=== PATIENT | male | born 1950 | race Caucasian/White ===

== ENCOUNTER 2017-05-28 15:44 | Observation (INO) | payer OTHER ==
[~2017-05-28] VITALS: Ht 185.4 cm; Wt 86.4 kg
[~2017-05-28 15:44] MED LIST: ASPIRIN LOW DOS81 M2 PO; ASPIRIN325 MG PO; ATENOLOL50 MG OR; BACTRIM DS1 TAB PO; LIPITOR20 M1 PO; LISINOPRIL10 MG PO; NITROGLYCER0.4 MG SL; NITROQUICK0.4 MG SL; OXYCODONE30 MG PO; PLAVIX75 MG OR; PROAIR HFA IN; PROCARDIA XL60 MG OR; SINGULAIR10 MG PO; ULTRAM50 MG PO
--- NOTE | 2017-05-28 15:44 | NUR ---
PATIENT TO ROOM VIA EMS AND PHYSICIAN AT BEDSIDE FOR EVALUATION
[2017-05-28 16:23] LABS: HEMATOCRIT 40.4 % (39.0-50.0); HEMOGLOBIN 13.1 g/dl (14.0-18.0); IMMATURE GRANULOCYTES 0.4 % (0.0-1.0); MEAN CELL VOLUME 91.4 fL CALC (80.0-100.0); MEAN CORPUSCULAR HGB 29.6 pG CALC (26.0-32.0); MEAN CORPUSCULAR HGB CONC 32.4 g/L CALC (32.0-36.0); NEUT# 2.97 thou/uL (1.82-7.42); RED BLOOD COUNT 4.42 mill/uL (4.70-6.10); RED CELL DISTRI WIDTH 13.5 % (11.5-15.5)
[2017-05-28 16:34] LABS: ALBUMIN 3.8 g/dL (3.2-5.0); ALKALINE PHOSPHATASE 102 u/l (38-126); ANION GAP 15 (6-22 (CALC)); BILIRUBIN, TOTAL 0.4 mg/dL (0.0-1.4); BUN 15 mg/dL (8-23); BUN/CREATININE RATIO 19 (12-20 (CALC)); CARBON DIOXIDE 25 mmol/l (22-30); CHLORIDE 110 mmol/l (95-108); CREATININE 0.8 mg/dL (0.7-1.3); GFR > 60 ML/MIN (>=60 (CALC)); GFR FOR AFR.AMER. > 60 ML/MIN (>=60 (CALC)); LIPASE 74 u/l (23-300); POTASSIUM 4.5 mmol/l (3.5-5.1); SGOT/AST 20 u/l (19-48); SGPT/ALT 27 u/l (11-66); SODIUM 146 mmol/l (137-146); TOTAL PROTEIN 6.3 g/dL (6.3-8.2)
--- NOTE | 2017-05-28 16:36 | NUR ---
PATIENT REPORTS CHEST PAIN 3/10 AT THIS TIME. NO SIGNS OF DISTRESS NOTED, VITAL SIGNS STABLE. WILL CONTINUE TO MONITOR.
[2017-05-28 16:39] LABS: D-DIMER 2.1 mg/L (0.19-0.60); INTERNATIONAL NORMALIZED RATIO 0.9 RATIO (0.7-1.3); PROTHROMBIN TIME 10.4 SECONDS (9.0-12.5)
--- NOTE | 2017-05-28 16:54 | NUR ---
NITRO BID APPLIED TO RIGHT UPPER CHEST. CALL LIGHT GIVEN, INFORMED TO CALL FOR ASSISTANCE. OFFICER AT BEDSIDE.
[2017-05-28] MEDS ORDERED: NITROGLYCERIN0.4 MG SL (18:00)
--- NOTE | 2017-05-28 18:01 | NUR ---
PATIENT MEDICATED PER MD ORDERS. TOLERATED WELL. REPORTS CHEST PAIN 3/10 AT THIS TIME. OFFICER AT BEDSIDE. WILL CONTINUE TO MONITOR.
--- NOTE | 2017-05-28 18:58 | NUR ---
REPORT GIVEN TO JANIYA DANIEL. CARE RELINQUISHED.
--- NOTE | 2017-05-28 19:25 | NUR ---
PT RESTING COMFORTABLY AT THIS TIME, GUARD WITH PT DUE TO INCARCERATIOIN.
--- NOTE | 2017-05-28 19:38 | NUR ---
Report called to [facility], Nadja DENSON. placing pt on tele box and transporting in a few minutes
--- NOTE | 2017-05-28 19:45 | NUR ---
PT TRANSFERRED TO FLOOR VIA STRETCHER ACCOMPANIED BY [employer] AND GUARD;PT AMBULATED WITH A STEADY GAIT TO STANDING SCALE AND BEDSIDE;WEIGHT AND VS OBTAINED;PT REPORTS HAVING CHEST PAIN,RADIATING TO HIS RIGHT ARM FOR 1 WEEK;CHEST PAIN CURRENTLY RATING 3/10 ON THE PAIN SCALE;MEDICATION SCHEDULE AND REPORTING EDUCATED;NITRO OINTMENT TO LEFT CHEST;PT ORIENTED TO ROOM AND CALL LIGHT SYSTEM;ASSESSMENT COMPLETED;PT A&O X3;TELE MONITOR IN PLACE;RESPIRATIONS EVEN AND UNLABORED ON RA,CLEAR LUNG SOUNDS NOTED;PERRLA;ABDOMEN SOFT WITH X4 ACTIVE BOWEL SOUNDS;STRONG PEDAL PULSES;EMS #20G TO LEFT HAND FLUSHED AND PATENT,SITE APPEARS HEALTHY;WATER PROVIDED PER REQUEST;SAFETY PRECAUTIONS REINFORCED WITH BED IN THE LOWEST POSITION;URINAL AT BEDSIDE;PT ENCOURAGED TO CALL FOR ASSISTANCE IF NEEDED;CALL LIGHT IN REACH;WILL CONTINUE TO MONITOR
[2017-05-28 19:52] VITALS: BP 144/90
--- NOTE | 2017-05-28 19:57 | NUR ---
Transported to [facility] via [facility]
--- NOTE | 2017-05-28 21:25 | NUR ---
NEW ORDERS RECEIVED FROM
--- NOTE | 2017-05-29 00:45 | NUR ---
PT APPEARS TO BE SLEEPING WITH GUARD AT BEDSIDE;WOKE PT TO OBTAIN VS;400CC OF YELLOW URINE EMPTIED FROM URINAL;PT DENIES ANY CHEST PAIN AT THIS TIME;TELE MONITOR IN PLACE;PT RE-ENCOURAGED TO CALL FOR ASSISTANCE IF NEEDED;CALL LIGHT IN REACH;WILL CONTINUE TO MONITOR
[2017-05-29 00:47] VITALS: BP 113/67
[2017-05-29 04:35] VITALS: BP 118/69
--- NOTE | 2017-05-29 04:35 | NUR ---
PT SLEEPING WITH EYES CLOSED IN SUPINE POSITION AND GUARD AT BEDSIDE;WOKE PT TO OBTAIN VS;PT VOICES NO COMPLAINTS OF CHEST PAIN;200CC OF CLEAR/YELLOW URINE EMPTIED FROM URINAL;TELE MONITOR IN PLACE;CALL LIGHT IN REACH;WILL CONTINUE TO MONITOR
--- NOTE | 2017-05-29 08:00 | NUR ---
PT IN SUPINE POSITION; NO COMPLAINTS VOICED; GUARD X1 AT BEDSIDE; TELE MONITOR IN PLACE; RT ANKLE SHACKLED, FULL ROM; WILL CONTINUE TO MONITOR.
[2017-05-29 08:15] VITALS: BP 137/62
[2017-05-29 10:47] VITALS: BP 128/75
--- NOTE | 2017-05-29 10:48 | NUR ---
TIMOTHY MENDEZ CALLED FROM [facility] FOR UPDATE ON PT'S STATUS
[2017-05-29] MEDS ORDERED: ZOLOFT50 MG PO (13:21)
[2017-05-29] MEDS ORDERED: MEDDOSEPAK PO (13:23)
--- NOTE | 2017-05-29 13:33 | NUR ---
DR. PORTER IN TO SEE PT; PLAN OF CARE DISCUSSED
--- NOTE | 2017-05-29 14:11 | NUR ---
Discharge instructions given. Patient verbalizes understanding of same. Discharged in stable condition via Wheelchair to [facility] with [facility] STAFF. All belongings sent with pt.
== END 2017-05-29 14:10 | DRG 313 ==
LOC: ED 15:44 → ED-I 18:42 → ED 18:57 → MS2 18:58
PROVIDERS: Emergency Medicine; ADMIT Internal Medicine; ATTEND Internal Medicine
DX: R07.89 Other chest pain (principal); I25.10 Atherosclerotic heart disease of native coronary artery without angina pectoris; J44.9 Chronic obstructive pulmonary disease, unspecified; F32.9 Major depressive disorder, single episode, unspecified; G89.29 Other chronic pain; M54.5 Low back pain; I25.2 Old myocardial infarction; Z87.891 Personal history of nicotine dependence
CPT/HCPCS: G0378; Q9967

== ENCOUNTER 2019-07-09 | Emergency (ER) | payer MEDICARE, OTHER ==
[~2019-07-09] MED LIST changes: +MEDDOSEPAK PO; +NITROGLYCERIN0.4 MG SL; +ZOLOFT50 MG PO
[2019-07-09 17:02] LABS: IMMATURE GRANULOCYTES 0.4 % (0.0-5.0); MEAN CELL VOLUME 89.1 fL CALC (80.0-100.0); MEAN CORPUSCULAR HGB 28.7 pG CALC (26.0-32.0); MEAN CORPUSCULAR HGB CONC 32.2 g/dL CAL (32.0-36.0); NEUT# 7.24 thou/uL (1.82-7.42); RED BLOOD COUNT 5.51 mill/uL (4.70-6.10); RED CELL DISTRI WIDTH 14.3 % (11.5-15.5)
[2019-07-09 17:04] LABS: HEMATOCRIT 49.1 % (39.0-50.0); HEMOGLOBIN 15.8 g/dl (14.0-18.0)
[2019-07-09 17:32] LABS: ALBUMIN 4.1 g/dL (3.2-5.0); ALKALINE PHOSPHATASE 117 u/l (38-126); ANION GAP 14 (6-22 (CALC)); BILIRUBIN, TOTAL 0.4 mg/dL (0.0-1.4); BUN 11 mg/dL (8-23); BUN/CREATININE RATIO 13 (12-20 (CALC)); CARBON DIOXIDE 27 mmol/l (22-30); CHLORIDE 101 mmol/l (95-108); CREATININE 0.8 mg/dL (0.7-1.3); GFR > 60 ML/MIN (>=60 (CALC)); GFR FOR AFR.AMER. > 60 ML/MIN (>=60 (CALC)); LIPASE 69 u/l (23-300); POTASSIUM 4.6 mmol/l (3.5-5.1); SGOT/AST 21 u/l (19-48); SODIUM 137 mmol/l (137-146); TOTAL PROTEIN 7.4 g/dL (6.3-8.2)
[2019-07-09 19:23] LABS: URINE BILIRUBIN - DIPSTICK NEGATIVE (NEGATIVE); URINE BLOOD DIPSTICK NEGATIVE (NEGATIVE); URINE COLOR YELLOW; URINE GLUCOSE - DIPSTICK NEGATIVE (NEGATIVE); URINE KETONE NEGATIVE (NEGATIVE); URINE LEUK ESTERASE NEGATIVE (NEGATIVE); URINE NITRITE - DIPSTICK NEGATIVE (Negative); URINE PH 5.5 (4.5-8.0); URINE PROTEIN - DIPSTICK NEGATIVE (NEG-TRACE)
[2019-07-09] MEDS ORDERED: PROTONIX40 M2 PO (19:40)
[2019-07-09] MEDS ORDERED: ZESTRIL10 M1 PO (19:40)
== END 2019-07-09 19:50 | disposition home or self-care (01) ==
PROVIDERS: Family Medicine
DX: K80.20 Calculus of gallbladder without cholecystitis without obstruction (principal); I10 Essential (primary) hypertension; I71.4 Abdominal aortic aneurysm, without rupture; J44.9 Chronic obstructive pulmonary disease, unspecified; F17.210 Nicotine dependence, cigarettes, uncomplicated
CPT/HCPCS: Q9967

== ENCOUNTER 2022-01-12 21:01 | Emergency (ER) | payer MEDICARE, MEDICAID ==
[2022-01-12] VITALS (10 sets, daily range): BP systolic 149–171; BP diastolic 81–103
[~2022-01-12] VITALS: Ht 185.4 cm; Wt 95.0 kg
[~2022-01-12 21:01] MED LIST changes: +PROTONIX40 M2 PO; +ZESTRIL10 M1 PO
[2022-01-12 21:56] LABS: HEMATOCRIT 47.6 % (39.0-50.0); HEMOGLOBIN 15.3 g/dl (14.0-18.0); IMMATURE GRANULOCYTES 0.5 % (0.0-5.0); MEAN CORPUSCULAR HGB 28.9 pG CALC (26.0-32.0); MEAN CORPUSCULAR HGB CONC 32.1 g/dL CAL (32.0-36.0); NEUT# 7.61 thou/uL (1.82-7.42); RED BLOOD COUNT 5.29 mill/uL (4.70-6.10)
[2022-01-12 22:08] LABS: ALBUMIN 3.8 g/dL (3.2-5.0); ANION GAP 13 (6-22 (CALC)); BUN 11 mg/dL (8-23); BUN/CREATININE RATIO 14 (12-20 (CALC)); CARBON DIOXIDE 27 mmol/l (22-30); CHLORIDE 99 mmol/l (95-108); CREATININE 0.8 mg/dL (0.7-1.3); GFR FOR AFR.AMER. > 60 ML/MIN (>=60 (CALC)); GFR OTHER RACES > 60 ML/MIN (>=60 (CALC)); LIPASE 45 u/l (23-300); POTASSIUM 3.8 mmol/l (3.5-5.1); SODIUM 136 mmol/l (137-146); TOTAL PROTEIN 7.2 g/dL (6.3-8.2)
[2022-01-12 22:12] LABS: ALKALINE PHOSPHATASE 463 u/l (38-126); BILIRUBIN, TOTAL 1.8 mg/dL (0.0-1.4); SGOT/AST 154 u/l (19-48)
[2022-01-13 00:01] VITALS: BP 146/76
[2022-01-13 00:16] VITALS: BP 129/76
[2022-01-13] MEDS ORDERED: TRAZODONE50 MG PO (00:19)
[2022-01-13] MEDS ORDERED: CELEBREX200 M1 (00:20)
[2022-01-13] MEDS ORDERED: LIPITOR40 M1 PO ×2 (00:20→00:26)
[2022-01-13] MEDS ORDERED: DILTIAZEM30 MG PO (00:22)
[2022-01-13] MEDS ORDERED: ASPIRIN325 MG PO (00:23)
[2022-01-13] MEDS ORDERED: METHOCARBAMOL500 MG PO (00:23)
[2022-01-13] MEDS ORDERED: TRI-BUFF ASA325 M2 PO (00:25)
[2022-01-13 00:30] VITALS: BP 132/87
[2022-01-13 00:45] VITALS: BP 132/87
[2022-01-13] MEDS ORDERED: TRAZODONE HCL50 MG PO (01:25)
== END 2022-01-13 00:45 | disposition short-term general hospital (02) ==
LOC: ED 21:01
PROVIDERS: Family Medicine
DX: K80.00 Calculus of gallbladder with acute cholecystitis without obstruction (principal); I71.4 Abdominal aortic aneurysm, without rupture; I10 Essential (primary) hypertension; J44.9 Chronic obstructive pulmonary disease, unspecified; F17.200 Nicotine dependence, unspecified, uncomplicated; K40.90 Unilateral inguinal hernia, without obstruction or gangrene, not specified as recurrent
CPT/HCPCS: Q9967; S0164